=== PATIENT | female | born 1995 | race Caucasian/White ===

== ENCOUNTER 2020-07-29 05:15 | Inpatient (IN) | payer OTHER ==
[2020-07-29 05:53] VITALS: BMI 40.5
[2020-07-29] MEDS ORDERED: AMPICILLIN SODIUM 2 GM VIAL ONE (05:54)
[2020-07-29] MEDS ORDERED: OXYTOCIN 20 UNITS in 0.9% NS 20 UNIT/1,000 ML INFUS.BAG IV ONE ×2 (05:54→09:01)
[2020-07-29] MEDS ORDERED: AMPICILLIN - 2 GM in SODIUM CHLORIDE 100 ML IVPB ONE (06:00)
[2020-07-29] MEDS ORDERED: OXYTOCIN 10 UNITS/ML VIAL ONE (06:13)
[2020-07-29] MEDS ORDERED: OXYTOCIN 10 UNIT/ML 10ML MDV IM ONE (06:15)
[2020-07-29] MEDS ORDERED: ELECTROLYTE-148 SOLN 1,000 ML IV SCH ×2 (06:45→07:30)
[2020-07-29] MEDS ORDERED: METHYLERGONOVINE MALEATE 0.2 MG/1 ML AMP IM PRN (06:46)
[2020-07-29] MEDS ORDERED: BENZOCAINE 28 GM HEMORRHOIDAL OINTMENT TP PRN (06:46)
[2020-07-29] MEDS ORDERED: WITCH HAZEL 50% (TUCKS) 40 PAD/JAR PAD TP PRN (06:46)
[2020-07-29] MEDS ORDERED: BENZOCAINE 20% 57 GM BOTTLE TP PRN (06:46)
[2020-07-29] MEDS ORDERED: BISACODYL 10 MG SUPP.RECT PR PRN (06:46)
[2020-07-29 06:56] LABS: CORD BASE EXCESS -6.9 mmol/L (0-2); CORD HCO3 19.3 mmHg (20-29); CORD pH 7.29 (7.14-7.44)
[2020-07-29] MEDS ORDERED: OXYTOCIN 20 UNITS in 0.9% NS 20 UNIT/1,000 ML INFUS.BAG IV SCH (07:00)
[2020-07-29 07:04] LABS: INR 0.89 (0.83-1.09); PROTHROMBIN TIME (PATIENT) 10.8 SEC (9.7-13.0)
[2020-07-29 07:08] LABS: EOS % 0.7 % (0-4.5); HEMATOCRIT 42.3 % (32.4-45.2); HEMOGLOBIN 14.2 GM/dL (10.7-15.3); LYMPH % 21.6 % (8-40); MCH 28.9 pg (25.7-33.7); MCHC 33.6 g/dl (32.0-36.0); MEAN CELL VOLUME 85.8 fl (80-96); MEAN PLT VOLUME 11.3 fl (7.5-11.1); MONO % 5.7 % (3.8-10.2); PLATELET COUNT 168 K/MM3 (134-434); POTASSIUM 3.2 mmol/L (3.5-5.1); RBC 4.93 M/mm3 (3.60-5.2); RDW 14.9 % (11.6-15.6); WHITE BLOOD COUNT 10.1 K/mm3 (4.0-10.0)
[2020-07-29 07:09] LABS: CALCIUM 8.3 mg/dL (8.5-10.1)
[2020-07-29 07:10] LABS: BLOOD UREA NITROGEN 15.8 mg/dL (7-18)
[2020-07-29 07:13] LABS: CREATININE 0.8 mg/dL (0.55-1.3)
[2020-07-29] MEDS: IBUPROFEN 600 MG TABLET (FP) PO PRN (09:00)
[2020-07-29 09:40] LABS: ANISOCYTOSIS 0; MACROCYTOSIS 0; PLATELET ESTIMATE NORMAL
[2020-07-29] MEDS ORDERED: AMPICILLIN - 1 GM in SODIUM CHLORIDE 100 ML IVPB SCH (10:00)
[2020-07-29] MEDS: ACETAMINOPHEN 325 MG TABLET (FP) PO PRN (10:40)
[2020-07-30] MEDS: IBUPROFEN 600 MG TABLET (FP) PO PRN (00:28)
[2020-07-30] MEDS: ACETAMINOPHEN 325 MG TABLET (FP) PO PRN (00:28)
[2020-07-30 09:45] LABS: BASO % 0.6 % (0-2.0); EOS % 0.9 % (0-4.5); HEMATOCRIT 38.7 % (32.4-45.2); LYMPH % 29.5 % (8-40); MCH 28.9 pg (25.7-33.7); MCHC 33.7 g/dl (32.0-36.0); MEAN CELL VOLUME 85.7 fl (80-96); MEAN PLT VOLUME 10.9 fl (7.5-11.1); MONO % 4.9 % (3.8-10.2); NEUT % 64.1 % (42.8-82.8); PLATELET COUNT 149 K/MM3 (134-434); RBC 4.51 M/mm3 (3.60-5.2); RDW 15.7 % (11.6-15.6); WHITE BLOOD COUNT 9.6 K/mm3 (4.0-10.0)
[2020-07-30 13:20] VITALS: BP 115/79; PULSE 77; TEMP 97.5
== END 2020-07-30 14:10 | disposition home or self-care (01) | DRG 560 ==
LOC: JLDR 05:15 → J3W 09:13
PROVIDERS: ADMIT Obstetrics & Gynecology; ATTEND Obstetrics & Gynecology
PROC: 10E0XZZ Delivery of Products of Conception, External Approach (ICD-10-PCS; principal; 2020-07-29)
DX: O48.0 Post-term pregnancy (principal); Z3A.40 40 weeks gestation of pregnancy; Z37.0 Single live birth
CPT/HCPCS: 36415; 36600; 59409; 80048; 82803; 85025; 85610; 85730; 86780; 86850; 86900; 86901; 87389; C9803; U0003